=== PATIENT | male | born 1950 | race Caucasian/White ===

== ENCOUNTER 2023-07-09 11:07 | Day surgery (SDC) | payer OTHER ==
[~2023-07-09] VITALS: Ht 167.6 cm; Wt 79.3 kg
[~2023-07-09 11:07] MED LIST: ALOGLIPTIN25 MG PO; CARV3.125 PO; GLIM4 PO; JENTADUETO 2.51 EACH PO; LISI20 PO; Lovastatin10 MG PO; METF850 PO; MIRALAX119 G2 PO; OMEP40CA12 PO; SITA100T2 PO; SULAR PO; TADA10TA; [UNRECOGNIZED DRUG - OTHER]
[2023-07-09] MEDS ORDERED: Crestor20 MG (11:31)
[2023-07-09] MEDS ORDERED: SERT100 PO (11:32)
[2023-07-09] MEDS ORDERED: Prozac20 MG PO (11:32)
[2023-07-09] MEDS ORDERED: TAMS.4ER PO (11:32)
[2023-07-09 12:56] VITALS: BP 129/70
== END 2023-07-09 13:13 | disposition home or self-care (01) ==
LOC: ORSCSDS 11:07
PROVIDERS: Ophthalmology
PROC: 08RJ3JZ Replacement of Right Lens with Synthetic Substitute, Percutaneous Approach (ICD-10-PCS; principal; 2023-07-09 12:30)
DX: E11.36 Type 2 diabetes mellitus with diabetic cataract (principal); H25.13 Age-related nuclear cataract, bilateral; I10 Essential (primary) hypertension; G47.33 Obstructive sleep apnea (adult) (pediatric); Z79.899 Other long term (current) drug therapy; Z79.82 Long term (current) use of aspirin
CPT/HCPCS: 82947; J2001; J2250; J3301; J7040; V2632

== ENCOUNTER 2023-07-16 12:33 | Day surgery (SDC) | payer OTHER ==
[~2023-07-16] VITALS: Ht 170.2 cm; Wt 78.3 kg
[~2023-07-16 12:33] MED LIST changes: +Crestor20 MG; +Prozac20 MG PO; +SERT100 PO; +TAMS.4ER PO
[2023-07-16] MEDS ORDERED: EZALLOR SPRINKL20 MG (13:15)
--- NOTE | 2023-07-16 13:30 | NUR ---
07/16/23 1330 Justine Valdez TETRACAINE PLACED IN LEFT EYE AT 1306. PLEDGET PLACED IN LEFT EYE AT 1307. PATIENT TOLERATED WELL.
[2023-07-16 14:11] VITALS: BP 144/73
== END 2023-07-16 14:29 | disposition home or self-care (01) ==
LOC: ORSCSDS 12:33
PROVIDERS: Ophthalmology
PROC: 08RK3JZ Replacement of Left Lens with Synthetic Substitute, Percutaneous Approach (ICD-10-PCS; principal; 2023-07-16 14:00)
DX: E11.36 Type 2 diabetes mellitus with diabetic cataract (principal); H25.12 Age-related nuclear cataract, left eye; Z96.1 Presence of intraocular lens; K21.9 Gastro-esophageal reflux disease without esophagitis; G47.33 Obstructive sleep apnea (adult) (pediatric); I10 Essential (primary) hypertension; Z87.891 Personal history of nicotine dependence; Z79.899 Other long term (current) drug therapy
CPT/HCPCS: 82947; J2250; J3010; J3301; J7040; V2632

== ENCOUNTER 2024-07-06 00:48 | Inpatient (IN) | payer OTHER ==
[2024-07-06] VITALS (19 sets, daily range): BP systolic 127–175; BP diastolic 85–103
[~2024-07-06] VITALS: Ht 170.2 cm; Wt 72.9 kg
[~2024-07-06 00:48] MED LIST changes: +METF500 PO; -METF850 PO; +ROSUVASTATIN CA20 MG PO
[2024-07-06 02:41] LABS: BASOPHILS ABSOLUTE AUTO 0.03 K/mm3 (0.00-0.23); BASOPHILS PERCENT AUTO 0 % (0-2); EOSINOPHILS ABSOLUTE AUTO 0.24 K/mm3 (0.00-0.68); EOSINOPHILS PERCENT AUTO 3 % (0-6); Hematocrit 38.7 % (37.0-53.0); IMMATURE GRAN ABSOLUTE AUTO 0.04 K/mm3 (0.00-0.10); IMMATURE GRAN PERCENT AUTO 1 % (0-1); LYMPHOCYTES ABSOLUTE AUTO 0.61 K/mm3 (0.84-5.20); LYMPHOCYTES PERCENT AUTO 8 % (21-46); MONOCYTES ABSOLUTE AUTO 0.51 K/mm3 (0.16-1.47); MONOCYTES PERCENT AUTO 7 % (4-13); Mean Corpuscular HGB 29.1 pg (26.0-34.0); Mean Corpuscular HGB Conc 33.6 g/dL (31.5-36.5); Mean Corpuscular Volume 87 fL (80-100); Mean Platelet Volume 9.6 fL (9.1-12.4); NEUTROPHILS ABSOLUTE AUTO 5.86 K/mm3 (1.96-9.15); NEUTROPHILS PERCENT AUTO 80 % (41-73); Platelet Count 194 K/mm3 (150-400); RDW Coefficient Variation 13.5 % (11.7-14.2); RDW Standard Deviation 42.7 fL (35.1-46.3); Red Blood Cell Count 4.47 M/mm3 (4.30-5.90); White Blood Cell Count 7.29 K/mm3 (4.00-11.30)
[2024-07-06] MEDS ORDERED: FentaNYL Citrate 50 MCG/ML 2 ML Injection IV PRN ×2 (02:50→03:25)
[2024-07-06 03:05] LABS: Albumin, Blood 3.5 g/dL (3.4-5.0); Albumin/Globulin Ratio 1.2 (0.8-1.8); Bilirubin, Total 0.4 mg/dL (0.1-1.0); Bun/Creatinine Ratio 15.6 (12.0-20.0); Calcium, Blood 8.6 mg/dL (8.5-10.1); Creatinine, Blood 0.77 mg/dL (0.60-1.20); Globulin, Blood 2.9 g/dL (2.2-4.0); Potassium, Blood 3.8 mmol/L (3.5-5.5); Total Protein, Blood 6.4 g/dL (6.4-8.2)
[2024-07-06] MEDS ORDERED: Naloxone HCl 0.4MG / ML 1ML Vial IV PRN (03:30)
[2024-07-06] MEDS ORDERED: Ondansetron HCl 2 MG / ML 2ML Vial IV PRN (03:30)
[2024-07-06] MEDS ORDERED: FLU VACC TS2024-25(6MOS UP)/PF 45 MCG/0.5 ML SYRINGE IM ONE (03:30)
[2024-07-06] MEDS ORDERED: OxyCODONE HCL 5 MG TAB PO PRN (03:30)
[2024-07-06] MEDS ORDERED: Acetaminophen 325 MG TABLET PO PRN (03:30)
[2024-07-06] MEDS ORDERED: Lactated Ringer's 1,000 ML IV SCH ×2 (04:00→11:50)
--- NOTE | 2024-07-06 04:35 | NUR ---
ARRIVAL TO SURGICAL UNIT ROOM 215 FROM ER. PT ARRIVED TO UNIT VIA GURNEY, TOLERATED TRANSFER TO BED WELL. PT CHANGED INTO GOWN, ORIENTED TO ROOM AND CALL LIGHT. VITAL SIGNS OBTAINED. CALL LIGHT IN REACH.
[2024-07-06] MEDS ORDERED: Ketorolac Tromethamine 15mg Vial IV PRN (05:00)
[2024-07-06 05:42] LABS: International Normalized Ratio 0.97; Prothrombin Time Results 10.4 Sec (9.7-11.5)
[2024-07-06] MEDS ORDERED: Insulin Regular 100 UNIT/ML 10ML Vial SC SCH ×2 (06:00→21:00)
--- NOTE | 2024-07-06 07:26 | NUR ---
SHIFT SUMMARY NOC. PT ADMIT FOR LEFT HIP FX. PT MEDICATED FOR PAIN WITH REPORTED RELIEF. PT NPO SINCE ARRIVAL TO FLOOR ASIDE FROM SMALL SIP OF WATER WITH ORAL PAIN PILLS. PT VOIDING URINE. CALL LIGHT IN REACH.
[2024-07-06] MEDS ORDERED: CeFAZolin Sodium 2,000 MG in NS 100 ML IV SCH ×2 (08:25→20:45)
[2024-07-06] MEDS ORDERED: Tranexamic Acid 100 ML IV SCH (08:25)
[2024-07-06] MEDS ORDERED: Docusate Sodium 100 MG Cap PO SCH (09:00)
[2024-07-06] MEDS ORDERED: Bupivacaine 0.5% HCl 5 MG/ML 30MLVIAL ONE (11:55)
--- NOTE | 2024-07-06 12:12 | NUR ---
PT TO SDS VIA BED FOR LEFT HIP IM NAIL Patient confirms NPO status and agrees with scheduled surgery. Pre-Op teaching done. Pt verbalizes understanding. History, Chart, Medications and Allergies reviewed before start of procedure.
[2024-07-06] MEDS ORDERED: propofoL 20 ML IV ONE (12:30)
[2024-07-06] MEDS ORDERED: propofoL 50 ML IV ONE (12:31)
--- NOTE | 2024-07-06 13:59 | NUR ---
07/06/24 1359 Jazmyn Santizo SPINAL BLOCK COMPLETED KEVYN MARTINEZ UPON ENTRY TO OR.
--- NOTE | 2024-07-06 15:03 | NUR ---
PACU TO ROOM 215, PT BROUGHT PERCY TO HIS ROOM IN HIS BED, SOMNOLENT BUT ABLE TO WAKE TO VERBAL STIMULI, 3 DRESSINGS TO L HIP/LATERAL THIGH IN PLACE WITH GAUZE AND CLEAR TEGADERM, MILD SWELLING NOTED IN R ANTERIOLATERAL THIGH BUT CIRCULATION DISTAL TO FIXATION SITE REMAIN INTACT, CAP REFIL < 3 SECONDS WITH STRONG PEDAL PULSES. POST OP VITALS STAARTED. LS CLEAR, CALL LIGHT IN REACH.
--- NOTE | 2024-07-06 19:29 | NUR ---
SHIFT SUMMARY POD0 L GAMMA NAIL, A/OX4, VSS, TOLERATING PO, PAIN MANAGED PER EMAR, PT NOT UP YET POST OP BUT WAS NUMB FROM SPINAL AND NOT ABLE TO HAVE THERAPY TODAY. NO ACUTE EVENTS THIS SHIFT, CALL LIGHT IN REACH.
[2024-07-07] MEDS ORDERED: Polyethylene Glycol 3350 17 gm PO PRN (00:20)
[2024-07-07 04:51] VITALS: BP 146/79
--- NOTE | 2024-07-07 05:19 | NUR ---
SHIFT SUMMARY NOC. PT POD 1 FOR LEFT GAMMA NAILING. GAUZE WITH TEGADERM X3 C/D/I. PT VOIDING URINE, TOLERATING PO. PT MEDICATED FOR PAIN WITH ORALS, REPORTED RELIEF OF SX. BED IN LOWEST POSITION. CALL LIGHT IN REACH.
[2024-07-07 07:13] VITALS: BP 136/74
[2024-07-07] MEDS ORDERED: Lisinopril 20 MG Tab PO SCH (09:00)
[2024-07-07] MEDS ORDERED: Sertraline HCl 100 MG Tab PO SCH (09:00)
[2024-07-07] MEDS ORDERED: Carvedilol 6.25 MG Tab PO SCH (09:00)
[2024-07-07] MEDS ORDERED: Aspirin 81 MG TabEC PO SCH (09:00)
[2024-07-07 15:39] VITALS: BP 118/68
--- NOTE | 2024-07-07 18:14 | NUR ---
SHIFT SUMMARY PT HAS WORKED w/ BOTH PT & OT TODAY. 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 HAS DECLINED PAIN MEDICINE THIS AFTERNOON STATES HIS HIP FEELS GOOD. EATING, DRINKING, & VOIDING. SURGICAL SITES WNL.
[2024-07-07 19:12] VITALS: BP 123/59
[2024-07-07] MEDS ORDERED: Tamsulosin HCl 0.4 MG Cap PO SCH (21:00)
[2024-07-08 04:30] VITALS: BP 133/66
--- NOTE | 2024-07-08 05:27 | NUR ---
SHIFT SUMMARY. SHIFT HAS BEEN UNREMARKABLE. PT AOX4, PLEASANT, COOPERATIVE WITH CARE, CALLS APPROPRIATELY, ABLE TO MAKE NEEDS KNOWN. HAS BEEN ABLE TO REST COMFORTABLY THROUGHOUT MOST OF SHIFT. REMAINS STEADY 1-2PA TRANSFER FROM CHAIR TO BED. PAIN ADEQUATELY MANAGED VIA EMAR. VITALS STABLE. LEFT HIP DRESSING REMAINS C/D/I. URINE OUTPUT HAS BEEN CONSISTENT, CHARTED APPROPRIATELY. ALL MEDICATIONS ADMINISTERED ON SCHEDULE WITHOUT DIFFICULTY. BED LOCKED IN LOWEST POSITION. CALL LIGHT LEFT WITHIN REACH.
[2024-07-08 07:12] VITALS: BP 140/68
[2024-07-08] MEDS ORDERED: MIRALAX17 GM PO (12:41)
[2024-07-08] MEDS ORDERED: Alogliptin Benzoate 25 MG TAB PO SCH (13:00)
[2024-07-08 15:05] VITALS: BP 115/54
[2024-07-08 18:33] LABS: SARS-Cov-2 (COVID-19) PCR, MMC NEGATIVE (NEGATIVE)
[2024-07-08 19:19] VITALS: BP 123/55
[2024-07-09 04:56] VITALS: BP 128/58
[2024-07-09 05:15] LABS: Hematocrit 23.1 % (37.0-53.0); Hemoglobin 7.8 g/dL (13.5-17.5); Mean Corpuscular HGB 29.4 pg (26.0-34.0); Mean Corpuscular HGB Conc 33.8 g/dL (31.5-36.5); Mean Corpuscular Volume 87 fL (80-100); Platelet Count 184 K/mm3 (150-400); RDW Coefficient Variation 13.9 % (11.7-14.2); Red Blood Cell Count 2.65 M/mm3 (4.30-5.90); White Blood Cell Count 5.16 K/mm3 (4.00-11.30)
[2024-07-09 05:39] LABS: Calcium, Blood 8.7 mg/dL (8.5-10.1); Creatinine, Blood 0.74 mg/dL (0.60-1.20)
--- NOTE | 2024-07-09 05:54 | NUR ---
SHIFT SUMMARY POD 3 L HIP NAILING PT RESTED T/O NIGHT. PAIN MANAGED PER EMAR. TOLERATING PO INTAKE, VOIDING. DRESSING TO L HIP IS C/D/I. PT TRANSFERS WITH 1-2 P ASST FWW AND GB. VSS. PLAN TO D/C TO SNF TODAY. NO OTHER COCERNS AT THIS TIME, CALL LIGHT WITHIN REACH
[2024-07-09 07:35] VITALS: BP 133/62
[2024-07-09] MEDS ORDERED: MetFORMIN HCl 500 mg PO SCH (08:00)
--- NOTE | 2024-07-09 11:53 | NUR ---
DISCHARGE SUMMARY POD3 L PERC HIP NAILING, A/OX4, VSS, TOLERATING PO, PAIN WELL MANAGED, DRESSINGS TO 3 SURGICAL SITES CHANGED TODAY AND CLEANED AT THE BEDSIDE, NEW DRESSINGS APPLIED ARE AQUACELLS. IV ACCESS REMOVED, REPORT CALLED TO NURSING STAFF.
== END 2024-07-09 11:43 | DRG 482 ==
LOC: ER 00:48 → SURS 00:49
PROVIDERS: Emergency Medicine; Internal Medicine; Orthopaedic Surgery Sports Medicine; ADMIT Student in an Organized Health Care Education/Training Program
PROC: 0QH734Z Insertion of Internal Fixation Device into Left Upper Femur, Percutaneous Approach (ICD-10-PCS; principal; 2024-07-06 12:30)
DX: S72.142A Displaced intertrochanteric fracture of left femur, initial encounter for closed fracture (principal); W18.30XA Fall on same level, unspecified, initial encounter; N40.0 Benign prostatic hyperplasia without lower urinary tract symptoms; E11.9 Type 2 diabetes mellitus without complications; I10 Essential (primary) hypertension; K22.70 Barrett's esophagus without dysplasia; H91.90 Unspecified hearing loss, unspecified ear; M19.90 Unspecified osteoarthritis, unspecified site; D64.9 Anemia, unspecified; Z98.84 Bariatric surgery status; Z98.890 Other specified postprocedural states; Z96.653 Presence of artificial knee joint, bilateral; Z66 Do not resuscitate; Z88.8 Allergy status to other drugs, medicaments and biological substances; Z79.84 Long term (current) use of oral hypoglycemic drugs; Z79.811 Long term (current) use of aromatase inhibitors; Z79.899 Other long term (current) drug therapy; Z96.641 Presence of right artificial hip joint; Z87.891 Personal history of nicotine dependence
CPT/HCPCS: 36415; 70450; 73502; 80048; 80053; 82947; 85025; 85027; 85610; 86850; 86900; 86901; 93005; 93010; 94762; 96365; 96374; 96375; 96376; 97110; 97116; 97162; 97165; 97530; 97535; 99285-25; A9270; C1713; G0378; J0690; J1815; J1885; J2704; J3010; J7120; U0002